=== PATIENT | female | born 2005 | race Caucasian/White ===

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

== ENCOUNTER 2023-02-22 18:55 | Emergency (ER) | payer OTHER, SELFPAY ==
[2023-02-22 19:08] VITALS: BP 116/65; PULSE 79; RESP 16; TEMP 36.4; O2SAT 99
--- NOTE | 2023-02-22 19:17 | ED.FEMALEGU ---
HPI - Female Genitourinary General Chief complaint: Urogenital-Female Stated complaint: frequent urination/pain lower back History of Present Illness HPI Narrative: Patient presents with urinary tract symptoms. Patient is 30 weeks with no -related problems. No abdominal pain no pelvic pain no vaginal discharge no vaginal bleeding. No flank pain or gross hematuria patient reports normal movement. Related Data Home Medications Medication Instructions Recorded Confirmed docusate sodium 100 mg capsule 100 mg PO DAILY 02/22/23 02/22/23 ferrous sulfate 325 mg (65 mg 325 mg PO DAILY 02/22/23 02/22/23 iron) tablet (FeroSul) vit no.95-ferrous 1 tablet PO DAILY 02/22/23 02/22/23 fumarate 28 mg-folic acid 800 mcg tablet () Allergies Allergy/AdvReac Type Severity Reaction Status Date / Time cefdinir Allergy Unknown Rash Verified 02/22/23 19:10 Cephalosporins Allergy Unknown Rash Verified 02/22/23 19:10 AMOXICILLIN TRIHYDRATE Allergy Unknown Rash Uncoded 02/22/23 19:10 POTASSIUM CLAVULANATE Allergy Unknown Rash Uncoded 02/22/23 19:10 Review of Systems Review of Systems: CONSTITUTIONAL: Denies fever, chills, or sweats. EYES: Denies visual changes, redness, or discharge. ENT: Denies rhinorrhea, congestion, sore throat, or otalgia. CARDIOVASCULAR: Denies chest pain, palpitations, or edema. RESPIRATORY: Denies cough or dyspnea. GASTROINTESTINAL: Denies abdominal pain, nausea, vomiting, or diarrhea. GENITOURINARY: Denies dysuria or hematuria. SKIN: Denies rash or itching. MUSCULOSKELETAL: Denies back pain, joint pain, or myalgia. NEUROLOGIC: Denies headache, numbness, or weakness. PSYCHIATRIC: Denies anxiety or depression. PMFSH Comments At time of signature, agree with nursing past medical, surgical, social and family history. There is no relevant family history pertinent to the presenting complaint Exam Narrative: GENERAL: Well-appearing, well-nourished, and in no acute distress. HEAD: Normocephalic, atraumatic. EYES: PERRLA and EOMI. ENT: Nares clear, no rhinorrhea or epistaxis. Mucous membranes moist. NECK: Supple. CHEST: Clear to auscultation. No respiratory distress. HEART: Regular rate and rhythm. No murmur heard. Normal peripheral pulses. ABDOMEN: Soft, nontender, nondistended, normal active bowel sounds. EXTREMITIES: Normal range of motion. No edema. SKIN: Warm, dry, no rash. NEURO: No focal deficits. Alert and oriented x3. [place] Coma Scale Eye Opening: Spontaneous 4 [place] Coma Scale Motor: Obeys Commands 6 [place] Coma Scale Verbal: Oriented 5 [place] Coma Scale Total 15 Course Course Level of Care: Express Care Visit Vital Signs Vital signs: Vital Signs Temperature 36.4 C 02/22/23 19:08 Pulse Rate 79 02/22/23 19:08 Respiratory Rate 16 02/22/23 19:08 Blood Pressure 116/65 02/22/23 19:08 Pulse Oximetry 99 02/22/23 19:08 Oxygen Delivery Room Air 02/22/23 19:08 Temperature 36.4 C 02/22/23 19:08 Pulse Rate 79 02/22/23 19:08 Respiratory Rate 16 02/22/23 19:08 Blood Pressure 116/65 02/22/23 19:08 Pulse Oximetry 99 02/22/23 19:08 Oxygen Delivery Room Air 02/22/23 19:08 MDM - Female Genitourinary Lab Data Labs: Urine Glucose Negative Reference Range: Negative Urine Glucose Negative Reference Range: Negative Urine Bilirubin Negative Reference Range: Negative Urine Bilirubin Negative Reference Range: Negative Urine Ketone Negative Reference Range: Negative Urine Ketone Negative Reference Range: Negative Urine S
== END 2023-02-22 19:45 | disposition home or self-care (01) ==
PROVIDERS: Emergency Provider Nurse Practitioner Family
DX: N39.0 Urinary tract infection, site not specified (principal)
CPT/HCPCS: 81003; 87086; 99213; G0463